=== PATIENT | female | born 1965 | race Caucasian/White ===

== ENCOUNTER → 2016-10-21 | Outpatient (REF) | payer MEDICARE, MEDICAID ==
[~2016-10-21] MED LIST: CALC600T21 PO; EPIP0.3I2 IM; MULTCAP PO; MULTCHW13 PO; VITA200016 PO
[2016-10-21 15:54] LABS: BASO # 0.1 K/mm3 (0.0-0.2); BASO % 0.7 % (0.0-1.0); EOS # 0.1 K/mm3 (0.0-0.50); EOS % 1.6 % (0.0-3.0); LARGE UNSTAINED CELL # 0.2 K/mm3 (0.0-0.4); LARGE UNSTAINED CELL % 1.7 % (0.0-4.0); LYMPH # 2.1 K/mm3 (1.5-4.5); LYMPH % 22.6 % (24.0-44.0); MEAN CORPUSCULAR HEMOGLOBIN 33.3 pg (27.0-33.0); MEAN CORPUSCULAR HGB CONC 34.5 g/dl (32.0-36.5); MEAN CORPUSCULAR VOLUME 96.7 fl (80.0-96.0); MONO # 0.5 K/mm3 (0.0-0.8); MONO % 5.4 % (0.0-5.0); NEUTROPHILS # 5.8 K/mm3 (1.8-7.7); PLATELET COUNT, AUTOMATED 336 k/mm3 (150-450); WHITE BLOOD COUNT 8.6 K/mm3 (4.0-10.0)
[2016-10-21 15:58] LABS: INR 0.9
[2016-10-21 16:10] LABS: ALBUMIN/GLOBULIN RATIO 1.21 (1.00-1.93); ALKALINE PHOSPHATASE 77 U/L (45-117); ALT/SGPT 23 U/L (12-78); ANION GAP 9 MEQ/L (8-16); AST/SGOT 14 U/L (15-37); BILIRUBIN,TOTAL 0.3 MG/DL (0.2-1.0); BLOOD UREA NITROGEN 10 MG/DL (7-18); CALCIUM LEVEL 9.5 MG/DL (8.5-10.1); CARBON DIOXIDE LEVEL 27 MEQ/L (21-32); CHLORIDE LEVEL 105 MEQ/L (98-107); CREATININE FOR GFR 0.57 MG/DL (0.55-1.02); GLOMERULAR FILTRATION RATE > 60.0 (>51); GLUCOSE, FASTING 77 MG/DL (70-105); SODIUM LEVEL 141 MEQ/L (136-145); TOTAL PROTEIN 7.3 GM/DL (6.4-8.2)
== END ==
LOC: M SFHCPLAZ 11:46
PROVIDERS: ATTEND Internal Medicine
DX: Z01.818 Encounter for other preprocedural examination (principal); N95.0 Postmenopausal bleeding
CPT/HCPCS: 36415; 80053; 85025; 85610; 93005; G0463

== ENCOUNTER → 2016-10-29 | Day surgery (SDC) | payer MEDICARE, MEDICAID ==
[~2016-10-29] VITALS: Ht 137.2 cm; Wt 57.6 kg
[~2016-10-29] MED LIST changes: +HYDROmorphone HCL 2 MG/ML 1ML VIAL (J1170) As Ordered ONE; +KETOROLAC 60 MG/2 ML VIAL (J1885) As Ordered ONE; +LACTATED RINGER'S 1000 ML IV ONE; +LIDOCAINE 1% SDV INJ 30 ML VIAL As Ordered ONE; +LR 1,000 ML IV SCH; +METOCLOPRAMIDE INJ 10MG/2ML VIAL (J2765) IV PRN; +MIDAZOLAM INJ 2 MG/2 ML VIAL (J2250) As Ordered ONE; +ONDANSETRON 4MG/2ML VIAL (J2405) As Ordered ONE; +ONDANSETRON 4MG/2ML VIAL (J2405) IV PRN; +PERCOCET 5MG/325MG TAB PO PRN; +PHENYLephrine HCL 500 MCG/5 ML (100MCG/ML) SYRINGE (J2370) As Ordered ONE; +PROPOFOL 200 MG/20 ML VIAL As Ordered ONE; +SILVER NITRATE APPLICATOR As Ordered ONE; +fentaNYL 100 MCG/2 ML INJECTION (J3010) As Ordered ONE; +fentaNYL 100 MCG/2 ML INJECTION (J3010) IV PRN
[2016-10-29 07:46] LABS: MEAN CORPUSCULAR HGB CONC 34.4 g/dl (32.0-36.5); MEAN CORPUSCULAR VOLUME 93.1 fl (80.0-96.0); RED CELL DISTRIBUTION WIDTH 11.7 % (11.5-14.5); WHITE BLOOD COUNT 7.2 K/mm3 (4.0-10.0)
--- NOTE | 2016-10-29 13:33 | RO ---
DATE OF PROCEDURE: 10/29/2016 PREOPERATIVE DIAGNOSES: 1. Abnormal uterine bleeding. 2. Severe osteoarthritis POSTPROCEDURE DIAGNOSES: 1. Abnormal uterine bleeding. 2. Severe osteoarthritis PROCEDURE PERFORMED: Hysteroscopy, dilatation and curettage. SURGEON: Bryant Aguirre DO CORPORATE COMMUNICATIONS INTERN: MAYTE Lala-1 ANESTHESIA: General via LMA. SPECIMENS SENT TO PATHOLOGY: Intrauterine tissue/endometrial curettings. ESTIMATED BLOOD LOSS: Less than 20 mL. FLUIDS REPLACED: 1300 mL lactated Ringer's. Hysteroscope fluid deficit was 100 mL. DRAINS: In-and-out catheter 30 mL of urine output. COMPLICATIONS: None. PREOPERATIVE ANTIBIOTIC: None indicated. INTRAOPERATIVE FINDINGS: Retroverted, retroflexed uterus that was sounded to 9 cm. There was a stenotic cervix. Hysteroscopic findings revealed predominantly atrophic fundal endometrium. Just beyond the internal os there were fronds of endometrial tissue, some of it polypoid in appearance; however, there was no large dominant polyp. The tissue was removed via curettings and polyp graspers. INDICATION: Abnormal uterine bleeding in a 51-year-old woman. PROCEDURE: The patient was counseled and consented on the risks, benefits, indications, alternatives of the procedure. Informed consent was obtained. She was taken to the operating room with an IV running and placed on the operating table. We placed her in the low lithotomy position prior to induction of anesthesia to ensure that the patient was comfortable and not in any pain. She has a history of severe osteoarthritis in bilateral hips. The patient, in the lithotomy position, was comfortable. Anesthesia was then administered and secured without any difficulty. She was prepared and draped in the normal sterile fashion. Time-out was performed per protocol. The bladder was drained with an in-and-out catheter. Sterile speculum was placed with good visualization of the cervix. The anterior lip of the cervix was grasped with a single-tooth tenaculum and downward traction was applied. The stenotic cervix was then sequentially dilated with Jaskaran dilators up to #16. This took a considerable amount of time given the stenosis of the cervix and the retroverted, retroflexed nature of the uterus. The hysteroscope was placed transcervical into the intrauterine cavity with findings noted above. Sharp curettage was performed throughout the endometrial cavity. After the sharp curettage was performed, additional hysteroscopic inspection revealed an area with small polypoid fragment along the left anterior uterine fundal wall. This polypoid fragment, which was less than a centimeter in greatest dimension was grasped and removed with hysteroscopic polyp graspers. All of the tissue was sent together for permanent section and review by the pathologist. The bleeding from the endometrium was noted to be minimal. Length Control Tester images were taken. The hysteroscope was removed. The single-tooth tenaculum was removed. Tenaculum sites were noted to be hemostatic. There was a small minor laceration of the posterior fourchette, which was repaired with #3-0 Vicryl [id number] stitch. Excellent hemostasis was noted. Sponge, lap, needle and sponge counts were correct. All instruments were noted to be removed from the vagina. The patient tolerated the entire procedure very well. She was transferred to the postanesthesia care unit in good and stable condition.
[2016-10-29 15:00] VITALS: BP 108/59
== END | disposition home or self-care (01) ==
LOC: M SDC 07:15
PROVIDERS: ATTEND Obstetrics & Gynecology
DX: N93.9 Abnormal uterine and vaginal bleeding, unspecified (principal); M15.0 Primary generalized (osteo)arthritis; N20.0 Calculus of kidney; M81.0 Age-related osteoporosis without current pathological fracture; M41.9 Scoliosis, unspecified; M53.2X2 Spinal instabilities, cervical region; E34.3 Short stature due to endocrine disorder; K57.30 Diverticulosis of large intestine without perforation or abscess without bleeding; G89.29 Other chronic pain; M25.551 Pain in right hip; R29.898 Other symptoms and signs involving the musculoskeletal system; Z91.018 Allergy to other foods; Z91.040 Latex allergy status; Z88.8 Allergy status to other drugs, medicaments and biological substances; Z98.1 Arthrodesis status
CPT/HCPCS: 36415; 58558; 85027; 86850; 86900; 86901; 88305; J1170; J1885; J2250; J2370; J2405; J3010

== ENCOUNTER → 2017-01-15 | Outpatient (CLI) | payer MEDICARE, MEDICAID ==
[~2017-01-15] MED LIST changes: -HYDROmorphone HCL 2 MG/ML 1ML VIAL (J1170) As Ordered ONE; -KETOROLAC 60 MG/2 ML VIAL (J1885) As Ordered ONE; -LACTATED RINGER'S 1000 ML IV ONE; -LIDOCAINE 1% SDV INJ 30 ML VIAL As Ordered ONE; -LR 1,000 ML IV SCH; -METOCLOPRAMIDE INJ 10MG/2ML VIAL (J2765) IV PRN; -MIDAZOLAM INJ 2 MG/2 ML VIAL (J2250) As Ordered ONE; -ONDANSETRON 4MG/2ML VIAL (J2405) As Ordered ONE; -ONDANSETRON 4MG/2ML VIAL (J2405) IV PRN; -PERCOCET 5MG/325MG TAB PO PRN; -PHENYLephrine HCL 500 MCG/5 ML (100MCG/ML) SYRINGE (J2370) As Ordered ONE; -PROPOFOL 200 MG/20 ML VIAL As Ordered ONE; -SILVER NITRATE APPLICATOR As Ordered ONE; -fentaNYL 100 MCG/2 ML INJECTION (J3010) As Ordered ONE; -fentaNYL 100 MCG/2 ML INJECTION (J3010) IV PRN
--- NOTE | 2017-01-15 11:16 | REP ---
DIGITAL DIAGNOSTIC UNILATERAL RIGHT BREAST MAMMOGRAPHY WITH CAD AND FOCUSED RIGHT BREAST SONOGRAPHY: HISTORY: Right breast lump 9-o'clock position present for the last 2 weeks with pain and tenderness. Comparison mammography is reviewed from July 03, 2016, July 02, 2015, and April 16, 2015. MAMMOGRAPHIC FINDINGS: A skin marker is affixed to the skin at the site of the palpable lump and routine views of the right breast are augmented by magnified focal spot compression CC, MLO, and true MLO views. These views demonstrate the breast parenchyma remains heterogeneously dense in a somewhat nodular pattern as on previous mammography. No progressive change, neodensity or mass lesion has developed. No spiculation or architectural distortion is seen. FOCUSED RIGHT BREAST SONOGRAPHY FINDINGS: The right breast is scanned from the 7o'clock position to the 10-o'clock position with the palpable lump at the 8-o'clock position. There is a cyst measuring 2.0 x 1.7 x 1.6 cm at the 8-o'clock to 9-o'clock position located 4.2 cm from the nipple, which may account for the mammographic opacity. There are two smaller cysts located at the 10-o'clock position. No suspicious sonographic finding is seen. IMPRESSION: BIRADS category 2 benign left breast imaging. A 2 cm cyst is seen at the 8-o'clock to 9-o'clock position in the right breast and felt to account for the mammographic opacity. Clinical follow-up is recommended. BI-RADS/ACR category 2 mammogram. Benign finding(s). Routine annual screening mammography (for women over age 40). This mammogram was interpreted with the aid of an FDA-approved computer-aided detection system. The patient states she/he had a clinical breast exam in December 2016. The patient letter being requested is M2. Signed by Ed Ambrosio MD 01/15/2017 01:16 P
== END ==
LOC: M RAD 09:01
PROVIDERS: ATTEND Nurse Practitioner Family
DX: N60.02 Solitary cyst of left breast (principal)
CPT/HCPCS: 76642; G0206

== ENCOUNTER → 2017-07-03 | Outpatient (CLI) | payer MEDICARE, MEDICAID ==
[~2017-07-03] MED LIST changes: -CALC600T21 PO; +CALC600T60 PO; -MULTCHW13 PO; +MULTCHW14 PO
--- NOTE | 2017-07-03 13:43 | REP ---
BILATERAL MAMMOGRAM: Family history of breast cancer in sister. Comparison made to multiple prior studies, most recent bilateral mammogram is 07/03/2016. There is heterogeneously dense breast parenchymal bilaterally. I suspect a new oval 2 cm nodule in the upper left breast. This is only seen on the MLO view. No other definite mass is seen bilaterally. No clustered microcalcifications are seen. IMPRESSION: ACR 0 incomplete. Suspect 2 cm oval nodular density superiorly on the left MLO view, not seen on the CC view. Recommend spot compression view, left breast in the MLO and ML projections as well as an axillary CC view of the left breast. Other views and ultrasound may also be necessary. Please also note that the Tyrer Cuzick score is 26.6%, which is above normal, and therefore, MRI of the breast is recommended. BI-RADS/ACR category 0 mammogram, incomplete. Additional imaging and/or prior images are needed before a final assessment can be assigned. This mammogram was interpreted with the aid of an FDA-approved computer-aided detection system. The patient states she/he had a clinical breast exam in July 2017. Patient letter M0. ?
--- NOTE | 2017-07-06 09:20 | DEXA ---
AP SPINE L1 - L4 0.844 -2.8 -2.2 LT FEMUR TOTAL 0.857 -1.2 -0.6 RT FEMUR TOTAL 0.789 -1.7 -1.2 TOTAL BODY TOTAL OTHER DUAL FEMUR FRAX* ASSESSMENT Risk factors: 10 year probability of fracture Major osteoporotic fracture % Hip fracture % COMMENTS: Normal bone densitometry of the hips. 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 The decreased density of the spine does represent a significant change. The increased density of the left hip does represent a significant change. The decreased density of the right hip does represent a significant change. The density of the spine has decreased 13.5% since the initial exam on 2007. The spine density has decreased 2.0% since the most recent exam on 06/29/2014. The density of the left hip has increased 40.5% since the initial exam on 2007. The density of the left hip has increased 6.2% since the most recent exam on . The density of the right hip has increased 0.5% since the initial exam on 2007. The density of the right hip has decreased 3.7% since the most recent exam on . FOLLOW-UP: Recommendation for the next bone density exam: 2 years. KENYON
== END ==
LOC: M WHC 10:17
PROVIDERS: ATTEND Nurse Practitioner Family
DX: R92.2 Inconclusive mammogram (principal); M81.0 Age-related osteoporosis without current pathological fracture; Z80.3 Family history of malignant neoplasm of breast; Z01.411 Encounter for gynecological examination (general) (routine) with abnormal findings; Z12.39 Encounter for other screening for malignant neoplasm of breast; Z12.12 Encounter for screening for malignant neoplasm of rectum; N95.1 Menopausal and female climacteric states
CPT/HCPCS: 77080; 82270; G0101; G0202

== ENCOUNTER → 2017-07-10 | Outpatient (CLI) | payer MEDICARE, MEDICAID ==
--- NOTE | 2017-07-10 16:20 | REP ---
Digital diagnostic unilateral left breast mammography with CAD and focused left breast sonography: History: Screening mammography from July 03, 2017 is BIRADS category zero incomplete because of 2 cm oval nodular density seen superiorly on the left MLO view. Diagnostic imaging was recommended. Comparison is also made with prior mammography from July 03, 2016. Mammographic findings: Magnified focal spot compression CC, MLO and true MLO views of the left breast confirm the presence of a partially obscured but otherwise well-circumscribed 1.9 cm oval shaped nodule projecting in the upper outer quadrant of the left breast. No spiculation or microcalcification is seen. Heterogeneously dense breast parenchyma is seen as on screening mammography. Sonographic findings: The left breast scanned from 12 o'clock to 3 o'clock. Multiple small cysts are seen. There is a large cyst at 1 o'clock measuring 16 x 10 x 14 mm located 2.5 cm from the nipple which is felt to correspond to the mammographic opacity. Impression: BIRADS category II benign left breast imaging. Cyst confirmed at 1 o'clock corresponding to the mammographic opacity. Repeat screening mammography recommended 1 year. BI-RADS/ACR category 2 mammogram. Benign finding(s). Routine annual screening mammography (for women over age 40). This mammogram was interpreted with the aid of an FDA-approved computer-aided detection system. The patient states she had a clinical breast exam in July 2017 The patient letter being requested is M1 dense. Signed by Ed Ambrosio MD 07/10/2017 04:53 P
== END ==
LOC: M RAD 13:52
PROVIDERS: ATTEND Nurse Practitioner Family
DX: R92.8 Other abnormal and inconclusive findings on diagnostic imaging of breast (principal); N60.12 Diffuse cystic mastopathy of left breast
CPT/HCPCS: 76642; G0206

== ENCOUNTER → 2018-03-23 | Outpatient (REF) | payer MEDICARE, MEDICAID ==
[2018-03-23 13:57] LABS: BASO # 0.1 10^3/uL (0.0-0.2); BASO % 0.9 % (0.0-1.0); EOS # 0.1 10^3/uL (0.0-0.50); EOS % 1.8 % (0.0-3.0); HEMATOCRIT 41.1 % (36.0-47.0); HEMOGLOBIN 14.3 g/dl (12.0-15.5); IMMATURE GRANULOCYTE % 0.2 % (0-3.0); LYMPH % 30.1 % (24.0-44.0); MEAN CORPUSCULAR HEMOGLOBIN 32.7 pg (27.0-33.0); MEAN CORPUSCULAR HGB CONC 34.8 g/dl (32.0-36.5); MEAN CORPUSCULAR VOLUME 94.1 fl (80.0-96.0); MONO # 0.4 10^3/uL (0.0-0.8); MONO % 6.5 % (0.0-5.0); NEUTROPHILS % 60.5 % (36.0-66.0); PLATELET COUNT, AUTOMATED 340 10^3/uL (150-450); RED BLOOD COUNT 4.37 10^6/uL (4.00-5.40); RED CELL DISTRIBUTION WIDTH 11.9 % (11.5-14.5); WHITE BLOOD COUNT 6.6 10^3/uL (4.0-10.0)
[2018-03-23 14:49] LABS: ERYTHROCYTE SEDIMENTATION RATE 15 mm/hr (0-30)
== END ==
LOC: M SFHCPLAZ 13:26
DX: J40 Bronchitis, not specified as acute or chronic (principal)
CPT/HCPCS: 85025

== ENCOUNTER → 2018-07-05 | Outpatient (REF) | payer MEDICARE, MEDICAID | LOC: M SFHCWAGY 11:11 | DX: Z12.4 Encounter for screening for malignant neoplasm of cervix (principal) | CPT/HCPCS: G0123 ==

== ENCOUNTER → 2018-07-05 | Outpatient (CLI) | payer MEDICARE, MEDICAID | LOC: M WHC 10:49 | DX: Z01.419 Encounter for gynecological examination (general) (routine) without abnormal findings (principal); Z12.31 Encounter for screening mammogram for malignant neoplasm of breast (principal); Z80.3 Family history of malignant neoplasm of breast; Z92.89 Personal history of other medical treatment; Z12.12 Encounter for screening for malignant neoplasm of rectum | CPT/HCPCS: 77067; G0123 ==

== ENCOUNTER → 2019-01-03 | Outpatient (REF) | payer MEDICARE, MEDICAID ==
[2019-01-03 12:06] LABS: BASO # 0.1 10^3/uL (0.0-0.2); BASO % 0.7 % (0.0-1.0); EOS # 0.1 10^3/uL (0.0-0.50); EOS % 1.5 % (0.0-3.0); HEMATOCRIT 39.8 % (36.0-47.0); HEMOGLOBIN 13.7 g/dl (12.0-15.5); LYMPH # 1.8 10^3/uL (1.5-4.5); LYMPH % 25.3 % (24.0-44.0); MEAN CORPUSCULAR HEMOGLOBIN 32.2 pg (27.0-33.0); MEAN CORPUSCULAR HGB CONC 34.4 g/dl (32.0-36.5); MEAN CORPUSCULAR VOLUME 93.6 fl (80.0-96.0); MONO # 0.4 10^3/uL (0.0-0.8); MONO % 5.8 % (0.0-5.0); NEUTROPHILS # 4.8 10^3/uL (1.8-7.7); NEUTROPHILS % 66.6 % (36.0-66.0); PLATELET COUNT, AUTOMATED 351 10^3/uL (150-450); RED BLOOD COUNT 4.25 10^6/uL (4.00-5.40); WHITE BLOOD COUNT 7.3 10^3/uL (4.0-10.0)
== END ==
LOC: M LABDRAW1 11:49
PROVIDERS: ATTEND Family Medicine
DX: K62.5 Hemorrhage of anus and rectum (principal)
CPT/HCPCS: 36415; 85025; G0463

== ENCOUNTER → 2019-01-17 | Outpatient (CLI) | payer MEDICARE, MEDICAID ==
--- NOTE | 2019-01-17 18:41 | REP ---
CHEST, TWO VIEWS: COMPARISON: 09/28/2018 There is no evidence of acute infiltrate. No pleural effusion is seen. The heart is normal in size. The mediastinal silhouette is unremarkable. The visualized osseous structures are intact. There are degenerative changes of the spine. IMPRESSION: No acute pulmonary disease. Electronically Signed by Low Yost MD 01/17/2019 07:59 P
[2019-01-17 18:54] LABS: BASO # 0.1 10^3/uL (0.0-0.2); EOS # 0.2 10^3/uL (0.0-0.50); EOS % 2.4 % (0.0-3.0); HEMATOCRIT 39.1 % (36.0-47.0); HEMOGLOBIN 13.4 g/dl (12.0-15.5); LYMPH # 1.8 10^3/uL (1.5-4.5); LYMPH % 28.7 % (24.0-44.0); MEAN CORPUSCULAR HEMOGLOBIN 32.7 pg (27.0-33.0); MEAN CORPUSCULAR HGB CONC 34.3 g/dl (32.0-36.5); MEAN CORPUSCULAR VOLUME 95.4 fl (80.0-96.0); MONO # 0.4 10^3/uL (0.0-0.8); NEUTROPHILS # 3.8 10^3/uL (1.8-7.7); NEUTROPHILS % 60.7 % (36.0-66.0); PLATELET COUNT, AUTOMATED 312 10^3/uL (150-450); WHITE BLOOD COUNT 6.2 10^3/uL (4.0-10.0)
[2019-01-17 20:35] LABS: BLOOD UREA NITROGEN 9 MG/DL (7-18); CALCIUM LEVEL 8.8 MG/DL (8.5-10.1); CARBON DIOXIDE LEVEL 25 MEQ/L (21-32); CHLORIDE LEVEL 109 MEQ/L (98-107); GLOMERULAR FILTRATION RATE > 60.0 (>51); GLUCOSE, FASTING 99 MG/DL (70-100); POTASSIUM SERUM 4.2 MEQ/L (3.5-5.1); SODIUM LEVEL 140 MEQ/L (136-145)
== END ==
LOC: M RAD 16:44
PROVIDERS: ATTEND Family Medicine
DX: J18.1 Lobar pneumonia, unspecified organism (principal)
CPT/HCPCS: 36415; 71046; 80048; 84145; 85025; 87486; 87581; 87633; 87798; 94640; G0463; J7613

== ENCOUNTER → 2019-01-17 | Outpatient (REF) | payer MEDICARE, MEDICAID | LOC: M SFHCPLAZ 16:56 | PROVIDERS: ATTEND Family Medicine | DX: J18.1 Lobar pneumonia, unspecified organism (principal) ==

== ENCOUNTER → 2019-08-17 | Outpatient (CLI) | payer MEDICARE, MEDICAID ==
--- NOTE | 2019-08-17 15:18 | REPMRS ---
Patient History The patient states she had a clinical breast exam in July 2019.Family history of colorectal cancer at age 90 in father, breast cancer at age 50 or over in paternal grandmother, breast cancer at age 57 in sister, ovarian cancer in maternal aunt. Benign core biopsy of the left breast, 1991. No Hormone Replacement Therapy Digital Woman Screen Mammo: August 17, 2019 - Exam #: [id number] Bilateral CC and MLO view(s) were taken. Technologist: Tamara Bond, Technologist Prior study comparison: July 05, 2018, bilateral digital woman screen mammo performed at [facility]. July 03, 2017, digital woman screen mammo performed at [facility]. July 03, 2016, digital woman screen mammo performed at [facility]. FINDINGS: The breast tissue is extremely dense which could obscure a lesion on mammography. The previously noted cyst in the left lateral mid breast has enlarged in the interval since the prior mammography and currently measures 4.0 cm in greatest diameter. This merits further evaluation. No other mammographic abnormality. There is an extremely dense symmetrical pattern of residual fibroglandular tissue. There has been no other change in the appearance of the mammogram from the previous studies. There is no other interval development of dominant mass, archetectural distortion, or grouped microcalcifications suggestive of malignancy. 3-D tomosynthesis shows no additional findings. Assessment: BI-RADS/ACR category 0 mammogram, Incomplete: Need additional imaging evaluation and/or prior mammograms for comparison. Recommendation Special view mammogram of the left breast (for women over age 40). This patient's Lifetime Breast Cancer RIsk is estimated at 25.1 %. Annual screening Breast MRI scanniing is recommended for patient's whose lifetime risk assessment is over 20%. This mammogram was interpreted with the aid of an FDA-approved computer-aided dectection system. Ultrasound of the left breast in 6 months. Breast MRI of both breasts in 6 months. Electronically Signed By: Brock Ambrosio MD 08/17/19 [id number]
--- NOTE | 2019-08-23 08:56 | DEXA ---
AP SPINE L1 - L4 0.837 -2.9 -2.1 LT FEMUR TOTAL 0.860 -1.2 -0.5 LT NECK 1.217 1.3 2.3 RT FEMUR TOTAL 0.834 -1.4 -0.7 RT NECK 1.170 1.0 2.0 TOTAL BODY TOTAL OTHER COMMENTS: There is low bone density of the hips. 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 The density of the spine has decreased 14.2% since the initial exam on 02/01/2008. The spine density has decreased 0.8% since the most recent exam on 07/03/2017. The density of the left hip has increased 41.0% since the initial exam on 02/01/2008. The density of the left hip has increased 0.4% since the most recent exam on 07/03/2017. The density of the right hip has increased 6.2% since the initial exam on 02/01/2008. The density of the right hip has increased 5.7% since the most recent exam on 07/03/2017. FOLLOW-UP: Recommendation for the next bone density exam: 2 years. KENYON
== END ==
LOC: M WHC 13:09
PROVIDERS: ATTEND Nurse Practitioner Family
DX: Z01.419 Encounter for gynecological examination (general) (routine) without abnormal findings (principal); Z12.31 Encounter for screening mammogram for malignant neoplasm of breast; M81.0 Age-related osteoporosis without current pathological fracture; Z80.0 Family history of malignant neoplasm of digestive organs; Z80.3 Family history of malignant neoplasm of breast; Z86.018 Personal history of other benign neoplasm; N63.25 Unspecified lump in the left breast, overlapping quadrants
CPT/HCPCS: 77063; 77067; 77080; G0101

== ENCOUNTER → 2019-08-19 | Outpatient (CLI) | payer MEDICARE, MEDICAID ==
--- NOTE | 2019-08-19 17:33 | REP ---
HISTORY: Cough. COMPARISON: 01/17/2019 FINDINGS: The superior mediastinal structures are midline. The cardiac silhouette is unremarkable in size, shape and position. The diaphragmatic surfaces of the lungs are regular and the costophrenic angles are clear. The pulmonary newman are clear. The imaged osseous structures are intact. IMPRESSION: There is no acute cardiopulmonary disease. No significant change from the prior exam. Electronically Signed by Varun Bacon DO 08/19/2019 06:21 P
== END ==
LOC: M LRY 16:03
PROVIDERS: ATTEND Physician Assistant
DX: R05 Cough (principal)
CPT/HCPCS: 71046; 94640; G0463

== ENCOUNTER → 2019-08-29 | Outpatient (CLI) | payer MEDICARE, MEDICAID ==
--- NOTE | 2019-08-29 17:12 | REP ---
Digital diagnostic unilateral left breast mammography with CAD and focused left breast sonography. History: Screening mammography from August 17, 2019 was BIRADS category zero because of a 4 cm density in the left breast. Left breast diagnostic imaging was recommended. Findings: Magnified focal spot compression CC, MLO, and true mediolateral views of the left breast were obtained. These confirm the presence of a well-circumscribed oval-shaped relatively low density 3.6 cm mass in the left breast upper outer quadrant at approximately 1 o'clock position. This has smooth margins. No other mammographic finding. Sonographic findings: The left breast is examined sonographically from 12 o'clock to 3 o'clock through the upper outer quadrant. Heterogeneous fibroglandular background echotexture is observed. There is a simple cyst at 1 o'clock corresponding the mammographic opacity. This measures 3.5 x 1.3 x 2.3 cm on ultrasound. No suspicious sonographic finding. Impression: BIRADS category II benign findings. 3.5 cm cyst confirmed by ultrasound in the left breast. BIRADS 2: BI-RADS/ACR category 2 mammogram. Benign Findings. Repeat screening bilateral mammography recommended 1 year. This mammogram was interpreted with the aid of an FDA-approved computer-aided detection system. The patient states she had a clinical breast exam in July 2019 The patient letter being requested is M1. Dense. Electronically Signed by Ed Ambrosio MD 08/29/2019 06:19 P
== END ==
LOC: M RAD 09:02
PROVIDERS: ATTEND Nurse Practitioner Family
DX: Z12.31 Encounter for screening mammogram for malignant neoplasm of breast (principal); N63.25 Unspecified lump in the left breast, overlapping quadrants

== ENCOUNTER → 2019-11-15 | Outpatient (REF) | payer MEDICARE, MEDICAID | LOC: M PLALAB 10:52 | PROVIDERS: ATTEND Nurse Practitioner Family | DX: E04.9 Nontoxic goiter, unspecified (principal) | CPT/HCPCS: 84443; G0463 ==

== ENCOUNTER → 2019-12-20 | Outpatient (CLI) | payer MEDICARE, MEDICAID ==
--- NOTE | 2019-12-20 16:07 | REPPI ---
TWO-VIEW CHEST: REASON: Bronchitis. COMPARISON: No priors. FINDINGS: The superior mediastinal structures are midline. The cardiac silhouette is unremarkable in size, shape, and position. The diaphragmatic surfaces of the lungs are regular, and the costophrenic angles are clear. The pulmonary newman are clear. The imaged osseous structures are intact. IMPRESSION: There is no acute cardiopulmonary disease. Electronically Signed by Varun Bacon DO 12/20/2019 04:57 P
== END ==
LOC: M PLAIMG 14:08
PROVIDERS: ATTEND Physician Assistant
DX: J20.9 Acute bronchitis, unspecified (principal)
CPT/HCPCS: 71046; G0463

== ENCOUNTER 2020-08-02 17:52 | Emergency (ER) | payer MEDICARE, MEDICAID ==
[~2020-08-02] VITALS: Ht 134.6 cm; Wt 59.4 kg
[2020-08-02 18:53] LABS: BASO # 0.1 10^3/uL (0.0-0.2); BASO % 0.7 % (0.0-1.0); EOS # 0.1 10^3/uL (0.0-0.5); EOS % 1.6 % (0.0-3.0); HEMATOCRIT 42.4 % (36.0-47.0); LYMPH # 1.8 10^3/uL (1.5-5.0); LYMPH % 21.3 % (24.0-44.0); MONO # 0.5 10^3/uL (0.0-0.8); MONO % 6.2 % (0.0-5.0); NEUTROPHILS # 5.8 10^3/uL (1.5-8.5); PLATELET COUNT, AUTOMATED 325 10^3/uL (150-450); RED BLOOD COUNT 4.51 10^6/uL (4.00-5.40); WHITE BLOOD COUNT 8.3 10^3/uL (4.0-10.0)
[2020-08-02] MEDS ORDERED: KETOROLAC 60MG 2ML VIAL IM ONE (19:15)
[2020-08-02] MEDS ORDERED: KETOROLAC 30 MG/ML 1ML VIAL IV ONE (19:15)
[2020-08-02] MEDS ORDERED: TAMSULOSIN 0.4 MG CAP PO ONE (19:15)
[2020-08-02] MEDS ORDERED: NS 1,000 ML IV ONE (19:15)
[2020-08-02 19:21] LABS: ALBUMIN 3.8 GM/DL (3.2-5.2); ALT/SGPT 19 U/L (12-78); BILIRUBIN,DIRECT 0.1 MG/DL (0.0-0.2); BILIRUBIN,TOTAL 0.4 MG/DL (0.2-1.0); BLOOD UREA NITROGEN 8 MG/DL (7-18); CALCIUM LEVEL 9.4 MG/DL (8.5-10.1); CARBON DIOXIDE LEVEL 27 MEQ/L (21-32); CHLORIDE LEVEL 106 MEQ/L (98-107); CREATININE FOR GFR 0.62 MG/DL (0.55-1.30); GLOMERULAR FILTRATION RATE > 60.0 (>51); GLUCOSE, FASTING 83 MG/DL (70-100); LIPASE 148 U/L (73-393); POTASSIUM SERUM 3.9 MEQ/L (3.5-5.1); SODIUM LEVEL 139 MEQ/L (136-145); TOTAL PROTEIN 7.1 GM/DL (6.4-8.2)
--- NOTE | 2020-08-02 20:07 | REPVR ---
PROCEDURE INFORMATION: Exam: CT Abdomen And Pelvis Without Contrast Exam date and time: 08/02/2020 7:17 PM Age: 55 years old Clinical indication: Abdominal pain; Additional info: R flank pain TECHNIQUE: Imaging protocol: Computed tomography of the abdomen and pelvis without contrast. Radiation optimization: All CT scans at this facility use at least one of these dose optimization techniques: automated exposure control; mA and/or kV adjustment per patient size (includes targeted exams where dose is matched to clinical indication); or iterative reconstruction. COMPARISON: CT ABD PELVIS W/O CONTRAST 07/24/2015 11:31 AM FINDINGS: Lungs: Clear appearing lung bases. Heart: The heart is top-normal in size and there is no pericardial effusion. Liver: There is a 1.5 cm cyst left lobe of the liver. Gallbladder and bile ducts: Normal appearing gallbladder. Pancreas: Normal pancreas. Spleen: Normal spleen. Adrenal glands: Normal adrenal glands. Kidneys and ureters: There is a small cyst upper pole of the left kidney. There is no evidence of hydronephrosis or obstruction right or left ureter. Stomach and bowel: Diverticula left colon with no evidence of diverticulitis. Appendix: Cecum is in the right pelvis and the appendix appears within the range of normal. Intraperitoneal space: There is no evidence of pneumoperitoneum. Vasculature: Unremarkable. No abdominal aortic aneurysm. Lymph nodes: Unremarkable. No enlarged lymph nodes. Urinary bladder: Normal urinary bladder. Reproductive: The uterus is enlarged and markedly retroverted. Follicular cysts of the ovaries. Bones/joints: There is severe narrowing of the right left hip joint with [id number], grade 4 changes of chondromalacia. There is severe sclerosis and cystic degenerative change throughout the right and left femoral head with subcortical chronic fracture lines, identified at the articular surface greater on the right. 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 Large cystic areas are noted through the bone of the acetabulum. There are severe compression deformities of the lower thoracic spine at multiple levels with extreme sclerosis and this is probably chronic post traumatic change and severe degenerative and arthritic change. Soft tissues: There is no evidence of soft tissue abnormality. IMPRESSION: 1. 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 2. No evidence of obstruction right or left kidney. 3. Retroverted uterus and follicular cysts of the ovaries. COMMENTS: Consistent with the [employer]'s Incidental Findings Committee white paper (J Am Alisa Radiol 2018): Any incidental renal lesion less than 1 cm or classified as too small to characterize, or any incidental cystic renal lesion characterized as simple-appearing, is likely benign. No follow-up imaging is recommended for these lesions per consensus recommendations based on imaging criteria. Electronically signed by: Pancho Ramos On 08/02/2020 20:08:02 PM
[2020-08-02] MEDS ORDERED: ROBA750T4 PO (20:47)
[2020-08-02] MEDS ORDERED: ASPE4PAD TOP (20:47)
[2020-08-02 20:55] VITALS: BP 142/83
[2020-08-02] MEDS ORDERED: **NOTE PATIENT COMMENT** MISC XX SCH (21:00)
[2020-08-02] MEDS ORDERED: methocarbamoL 750 MG TAB PO ONE (21:00)
[2020-08-02] MEDS ORDERED: LIDOCAINE 5% (LIDODERM) PATCH TD ONE (21:00)
[2020-08-03] MEDS ORDERED: **NOTE PATIENT COMMENT** MISC XX ONE (09:00)
--- NOTE | 2020-08-03 10:54 | ED PDOC ---
Post-Departure Follow-Up dr york and clarence pinzon faxed formal report of ct abd/p for fu Raul Romero MD Aug 03, 2020 10:54
== END 2020-08-02 21:17 | disposition home or self-care (01) ==
LOC: M ED 17:52
DX: M54.5 Low back pain (principal); M41.9 Scoliosis, unspecified; M51.9 Unspecified thoracic, thoracolumbar and lumbosacral intervertebral disc disorder; Z87.442 Personal history of urinary calculi; Z79.899 Other long term (current) drug therapy; Z88.8 Allergy status to other drugs, medicaments and biological substances; Z91.018 Allergy to other foods; Z91.040 Latex allergy status
CPT/HCPCS: 36415; 74176; 80048; 80076; 81001; 83690; 85025; 96372; 99283; J1885

== ENCOUNTER → 2020-08-17 | Outpatient (CLI) | payer MEDICARE, MEDICAID ==
[~2020-08-17] MED LIST changes: +ASPE4PAD TOP; +ROBA750T4 PO
--- NOTE | 2020-08-17 14:52 | REPMRS ---
Patient History The patient states she had a clinical breast exam in 07/2020 Family history of colorectal cancer at age 90 in father, breast cancer at age 50 or over in paternal grandmother, breast cancer at age 57 in sister, ovarian cancer in maternal aunt. Benign core biopsy of the left breast, 1991. No Hormone Replacement Therapy Digital Woman Screen Mammo: August 17, 2020 - Exam #: [id number] Bilateral CC and MLO view(s) were taken. Technologist: Maci Martínez, Technologist Prior study comparison: August 29, 2019, left breast digital mammo diagnostic unilateral, performed at [facility]. August 17, 2019, bilateral digital woman screen mammo performed at [facility]. July 05, 2018, bilateral digital woman screen mammo performed at [facility]. July 03, 2017, digital woman screen mammo performed at [facility]. FINDINGS: The breast tissue is heterogeneously dense. This may lower the sensitivity of mammography. The Volpara volumetric breast density category is: C. The previously noted left breast cyst has regressed. There is a moderate amount of heterogeneously dense fibroglandular tissue which is fairly symmetric. There is no interval development of dominant mass, architectural distortion, or grouped microcalcification typical of malignancy. There has been no change in the appearance of the mammogram from the prior studies. 3-D tomosynthesis shows no additional findings. Assessment: BI-RADS/ACR category 2 mammogram. Benign Findings. Recommendation Breast MRI of both breasts in 6 months. Routine screening mammogram of both breasts in 1 year (for women over age 40). This patient's [facility] Lifetime Breast Cancer RIsk is estimated at 24.5 %. Annual screening Breast MRI scanniing is recommended for patient's whose lifetime risk assessment is over 20%. This mammogram was interpreted with the aid of an FDA-approved computer-aided dectection system. Electronically Signed By: Brock Ambrosio MD 08/17/20 [id number]
== END ==
LOC: M WHC 13:16
PROVIDERS: ATTEND Nurse Practitioner Family
DX: Z01.419 Encounter for gynecological examination (general) (routine) without abnormal findings (principal); Z12.31 Encounter for screening mammogram for malignant neoplasm of breast; Z80.0 Family history of malignant neoplasm of digestive organs; Z80.3 Family history of malignant neoplasm of breast; Z86.018 Personal history of other benign neoplasm
CPT/HCPCS: 77063; 77067; G0101

== ENCOUNTER → 2021-03-06 | Outpatient (CLI) | payer MEDICARE, MEDICAID | LOC: M RAD 09:48 | PROVIDERS: ATTEND Nurse Practitioner Women's Health | DX: Z91.89 Other specified personal risk factors, not elsewhere classified (principal); Z80.3 Family history of malignant neoplasm of breast; Z53.8 Procedure and treatment not carried out for other reasons ==

== ENCOUNTER → 2021-05-16 | Outpatient (CLI) | payer MEDICARE, MEDICAID ==
--- NOTE | 2021-05-16 11:21 | REP ---
INDICATION: PAIN IN RIGHT KNEE COMPARISON: None. TECHNIQUE: Five views right knee. FINDINGS: There is no evidence of acute fracture, dislocation, or intrinsic bone disease.There is mild patellofemoral compartment narrowing with subchondral sclerosis. There is a moderate spur of the lateral patellar facet. There is no radiographic evidence of a significant joint effusion. IMPRESSION: No fracture or dislocation. Degenerative changes patellofemoral joint. <Electronically signed by Low Yost > 05/16/21 [id number]
== END ==
LOC: M RAD 09:38
PROVIDERS: ATTEND Physician Assistant
DX: M25.561 Pain in right knee (principal)

== ENCOUNTER → 2021-09-02 | Outpatient (CLI) | payer MEDICARE, MEDICAID ==
[~2021-09-02] MED LIST changes: +ALBU8.5H PO; +CETI-24 PO; +FAMO20TA5 PO
== END ==
LOC: M LABSMTC 12:10
PROVIDERS: ATTEND Anesthesiology
DX: Z01.818 Encounter for other preprocedural examination (principal); Z11.52 Encounter for screening for COVID-19

== ENCOUNTER → 2021-09-04 | Outpatient (CLI) | payer MEDICARE, MEDICAID | LOC: M WHC 11:16 | PROVIDERS: ATTEND Nurse Practitioner Women's Health | DX: Z12.31 Encounter for screening mammogram for malignant neoplasm of breast (principal); Z12.4 Encounter for screening for malignant neoplasm of cervix; M81.6 Localized osteoporosis [Lequesne]; R92.8 Other abnormal and inconclusive findings on diagnostic imaging of breast; N95.8 Other specified menopausal and perimenopausal disorders | CPT/HCPCS: 77063; 77067; 77080; 87624; G0101; G0123 ==

== ENCOUNTER → 2021-09-04 | Outpatient (REF) | payer MEDICARE, MEDICAID | LOC: M SFHCWAGY 18:30 | PROVIDERS: ATTEND Nurse Practitioner Women's Health | DX: Z12.4 Encounter for screening for malignant neoplasm of cervix (principal); N95.8 Other specified menopausal and perimenopausal disorders ==

== ENCOUNTER 2021-09-05 09:52 | Day surgery (SDC) | payer MEDICARE, MEDICAID ==
[~2021-09-05] VITALS: Ht 132.1 cm; Wt 59.3 kg
[~2021-09-05 09:52] MED LIST changes: +NS 1,000 ML IV ONE
[2021-09-05] MEDS ORDERED: fentaNYL 100 MCG/2 ML INJECTION (J3010) As Ordered ONE (12:24)
[2021-09-05] MEDS ORDERED: propofoL 200 MG/20 ML VIAL As Ordered ONE (12:44)
[2021-09-05] MEDS ORDERED: LIDOCAINE 2% 100MG/5ML SDV (FOR ANES.) As Ordered ONE (12:44)
[2021-09-05 13:28] VITALS: BP 130/67
== END 2021-09-05 14:00 | disposition home or self-care (01) ==
LOC: M OPP 09:52
PROVIDERS: ATTEND Internal Medicine Gastroenterology
DX: Z12.11 Encounter for screening for malignant neoplasm of colon (principal); Z86.010 Personal history of colon polyps; K64.0 First degree hemorrhoids; K20.80 Other esophagitis without bleeding; R10.13 Epigastric pain; Z79.899 Other long term (current) drug therapy; Z91.018 Allergy to other foods; Z91.040 Latex allergy status; Z88.5 Allergy status to narcotic agent; Z88.8 Allergy status to other drugs, medicaments and biological substances
CPT/HCPCS: 43239; 88305; G0105; J3010

== ENCOUNTER → 2021-10-02 | Outpatient (CLI) | payer MEDICARE, MEDICAID ==
[~2021-10-02] MED LIST changes: +CALC1TAB42 PO; -NS 1,000 ML IV ONE
== END ==
LOC: M WHC 06:58
PROVIDERS: ATTEND Surgery
DX: N63.21 Unspecified lump in the left breast, upper outer quadrant (principal); R92.8 Other abnormal and inconclusive findings on diagnostic imaging of breast

== ENCOUNTER → 2021-10-02 | Outpatient (CLI) | payer MEDICARE, MEDICAID ==
[~2021-10-02] MED LIST changes: +ACET1TAB16; +ACET650T61 PO; +CETI-24; +OMEP40CA5
[2021-10-02 09:28] VITALS: BP 138/86
== END ==
LOC: M WHCPRO 07:02
PROVIDERS: ATTEND Surgery
DX: D05.02 Lobular carcinoma in situ of left breast (principal)
CPT/HCPCS: 11104; 19083; 19084; 76642; 77065; 88305; 88342; G0279

== ENCOUNTER → 2021-10-07 | Outpatient (CLI) | payer MEDICARE, MEDICAID ==
[~2021-10-07] MED LIST changes: -ACET1TAB16; -ACET650T61 PO; -CETI-24; -OMEP40CA5
== END ==
LOC: M PLALAB 15:18
PROVIDERS: ATTEND Surgery
DX: Z85.3 Personal history of malignant neoplasm of breast (principal)

== ENCOUNTER → 2021-10-18 | Outpatient (CLI) | payer MEDICARE, MEDICAID ==
[~2021-10-18] MED LIST changes: +ACET-897 PO; +ACET1TAB16; +ACET650T61 PO; +CETI-24; +OMEP40CA5; +ROXI1TAB2 PO; +TAMO20TA8 PO
[2021-10-18 17:09] LABS: BASO # 0.1 10^3/uL (0.0-0.2); BASO % 0.9 % (0.0-1.0); EOS # 0.1 10^3/uL (0.0-0.5); EOS % 1.9 % (0.0-3.0); HEMATOCRIT 42.2 % (36.0-47.0); HEMOGLOBIN 14.3 g/dl (12.0-15.5); LYMPH % 29.1 % (24.0-44.0); MEAN CORPUSCULAR HEMOGLOBIN 31.9 pg (27.0-33.0); MEAN CORPUSCULAR HGB CONC 33.9 g/dl (32.0-36.5); MEAN CORPUSCULAR VOLUME 94.2 fl (80.0-96.0); MONO # 0.4 10^3/uL (0.0-0.8); MONO % 6.4 % (2.0-8.0); NEUTROPHILS # 4.2 10^3/uL (1.5-8.5); NEUTROPHILS % 61.6 % (36.0-66.0); PLATELET COUNT, AUTOMATED 375 10^3/uL (150-450); RED BLOOD COUNT 4.48 10^6/uL (4.00-5.40); WHITE BLOOD COUNT 6.7 10^3/uL (4.0-10.0)
[2021-10-18 17:21] LABS: INR 0.87; PARTIAL THROMBOPLASTIN TIME 27.5 SECONDS (25.9-37.0); PROTHROMBIN TIME 12.2 SECONDS (12.7-14.5)
[2021-10-18 17:38] LABS: ALBUMIN 3.8 GM/DL (3.2-5.2); ALT/SGPT 25 U/L (12-78); BILIRUBIN,TOTAL 0.2 MG/DL (0.2-1.0); BLOOD UREA NITROGEN 13 MG/DL (7-18); CALCIUM LEVEL 8.9 MG/DL (8.5-10.1); CARBON DIOXIDE LEVEL 26 MEQ/L (21-32); CHLORIDE LEVEL 108 MEQ/L (98-107); CREATININE FOR GFR 0.61 MG/DL (0.55-1.30); FERRITIN 33 NG/ML (8-252); GLOMERULAR FILTRATION RATE > 60.0 (>51); GLUCOSE, FASTING 108 MG/DL (70-100); NT-PRO BNP 55 PG/ML (<125); POTASSIUM SERUM 4.1 MEQ/L (3.5-5.1); SODIUM LEVEL 141 MEQ/L (136-145); TOTAL PROTEIN 7.4 GM/DL (6.4-8.2)
[2021-10-18 17:45] LABS: PTH INTACT 118.3 PG/ML (18.5-88.0)
== END ==
LOC: M LAB 16:35
PROVIDERS: ATTEND Family Medicine
DX: Z01.818 Encounter for other preprocedural examination (principal); M81.0 Age-related osteoporosis without current pathological fracture

== ENCOUNTER → 2021-10-24 | Outpatient (CLI) | payer MEDICARE, MEDICAID ==
[~2021-10-24] MED LIST changes: -ACET-897 PO; -TAMO20TA8 PO
== END ==
LOC: M LABSMTC 10:37
PROVIDERS: ATTEND Anesthesiology
DX: Z01.818 Encounter for other preprocedural examination (principal); Z11.52 Encounter for screening for COVID-19

== ENCOUNTER 2021-10-29 06:39 | Day surgery (SDC) | payer MEDICARE, MEDICAID ==
[~2021-10-29] VITALS: Ht 132.1 cm; Wt 59.0 kg
[~2021-10-29 06:39] MED LIST changes: +HEPARIN SOD (PORCINE) 5000UNITS/ML 1ML VIAL/SYRINGE SQ ONE; +LR 1,000 ML IV ONE; +NS 1,000 ML IV ONE; -ROXI1TAB2 PO; +ceFAZolin SOD 1 GM in D5W MINI-BAG PLUS 50 ML IV ONE
[2021-10-29] MEDS ORDERED: LIDOCAINE 1% SDV 30ML VIAL As Ordered ONE (08:58)
[2021-10-29] MEDS ORDERED: BUPIVACAINE HCL 0.25% 30ML VIAL As Ordered ONE (08:58)
[2021-10-29] MEDS ORDERED: METHYLENE BLUE 0.5% (5MG/ML) 10 ML AMP (PROVAYBLUE) As Ordered ONE (08:58)
[2021-10-29] MEDS ORDERED: ONDANSETRON 4MG/2ML VIAL As Ordered ONE (09:51)
[2021-10-29] MEDS ORDERED: HYDROmorphone HCL 2MG/ML 1ML VIAL As Ordered ONE (09:51)
[2021-10-29] MEDS ORDERED: dexameTHASONE 4 MG/ML 1ML VIAL (J1100 PER 1MG) As Ordered ONE (09:51)
[2021-10-29] MEDS ORDERED: METOCLOPRAMIDE INJ 10MG/2ML VIAL (J2765 PER 1) As Ordered ONE (09:51)
[2021-10-29] MEDS ORDERED: ROCURONIUM BROMIDE 50 MG/5 ML VIAL As Ordered ONE (09:51)
[2021-10-29] MEDS ORDERED: LIDOCAINE 2% 100MG/5ML SDV (FOR ANES.) As Ordered ONE (09:51)
[2021-10-29] MEDS ORDERED: propofoL 200 MG/20 ML VIAL As Ordered ONE (09:51)
[2021-10-29] MEDS ORDERED: SUGAMMADEX SODIUM 500 MG/5 ML VIAL (BRIDION) As Ordered ONE (09:51)
[2021-10-29] MEDS ORDERED: MIDAZOLAM INJ 2MG/2ML VIAL (J2250 PER 1MG) As Ordered ONE (09:51)
[2021-10-29] MEDS ORDERED: fentaNYL 250 MCG/5 ML INJECTION As Ordered ONE (09:51)
[2021-10-29] MEDS ORDERED: LIDOCAINE 2% JELLY 5ML TUBE As Ordered ONE ×2 (10:09→10:19)
[2021-10-29] MEDS ORDERED: ACETAMINOPHEN 1000MG 100ML IV BTL (OFIRMEV) (J0131 PER 10MG) As Ordered ONE (10:12)
[2021-10-29] MEDS ORDERED: ePHEDrine SULFATE 25 MG/5 ML(5MG/ML) SYRINGE As Ordered ONE (10:27)
[2021-10-29] MEDS ORDERED: ALBUTEROL 6.7GM INHALER **FOR ANES. CART/OMNICELL ONLY As Ordered ONE (12:29)
[2021-10-29] MEDS ORDERED: ROXI1TAB2 PO (13:02)
[2021-10-29] MEDS ORDERED: oxyCODONE 5MG TAB PO PRN (13:10)
[2021-10-29] MEDS ORDERED: LR 1,000 ML IV SCH (13:10)
[2021-10-29] MEDS ORDERED: METOCLOPRAMIDE INJ 10MG/2ML VIAL (J2765 PER 1) IV PRN (13:10)
[2021-10-29] MEDS ORDERED: HYDROMORPHONE HCL 0.5 MG/ 0.5 ML SYRINGE (J1170 PER 1) IV PRN (13:10)
[2021-10-29] MEDS ORDERED: ONDANSETRON 4MG/2ML VIAL IV PRN (13:10)
[2021-10-29] MEDS ORDERED: diphenhydrAMINE 50MG/ML VIAL (J1200) As Ordered ONE (13:26)
[2021-10-29] MEDS ORDERED: diphenhydrAMINE 50MG/ML VIAL (J1200) IV PRN (13:30)
[2021-10-29 14:34] VITALS: BP 123/64
== END 2021-10-29 14:38 | disposition home or self-care (01) ==
LOC: M SDC 06:39
PROVIDERS: ATTEND Surgery
DX: D05.02 Lobular carcinoma in situ of left breast (principal); Z17.0 Estrogen receptor positive status [ER+]; R00.2 Palpitations; M19.90 Unspecified osteoarthritis, unspecified site; M81.0 Age-related osteoporosis without current pathological fracture; J44.9 Chronic obstructive pulmonary disease, unspecified; K21.01 Gastro-esophageal reflux disease with esophagitis, with bleeding; J30.2 Other seasonal allergic rhinitis; Z98.1 Arthrodesis status; Z91.040 Latex allergy status; Z91.018 Allergy to other foods; Z88.8 Allergy status to other drugs, medicaments and biological substances; Z88.5 Allergy status to narcotic agent; Z79.899 Other long term (current) drug therapy
CPT/HCPCS: 19125; 19285; 36415; 38525; 78195; 81025; 86850; 86900; 86901; 88307; 88342; J0131; J0690; J1100; J1170; J1200; J1644; J2250; J2405; J2765; J3010

== ENCOUNTER → 2021-11-19 | Outpatient (CLI) | payer MEDICARE, MEDICAID ==
[~2021-11-19] MED LIST changes: +ACET-897 PO; -HEPARIN SOD (PORCINE) 5000UNITS/ML 1ML VIAL/SYRINGE SQ ONE; -LR 1,000 ML IV ONE; -NS 1,000 ML IV ONE; +ROXI1TAB2 PO; +TAMO20TA8 PO; -ceFAZolin SOD 1 GM in D5W MINI-BAG PLUS 50 ML IV ONE
== END ==
LOC: M ONCR 14:22
PROVIDERS: ATTEND General Practice
DX: C50.312 Malignant neoplasm of lower-inner quadrant of left female breast (principal); Z79.899 Other long term (current) drug therapy; Z80.0 Family history of malignant neoplasm of digestive organs; Z80.3 Family history of malignant neoplasm of breast; Z80.8 Family history of malignant neoplasm of other organs or systems; Z88.8 Allergy status to other drugs, medicaments and biological substances; Z91.010 Allergy to peanuts; Z91.018 Allergy to other foods; Z91.040 Latex allergy status; Z91.09 Other allergy status, other than to drugs and biological substances

== ENCOUNTER 2021-11-25 07:45 | Outpatient (RCR) | payer MEDICARE, MEDICAID | END 2021-11-28 | LOC: M ONCR 07:45 | PROVIDERS: ATTEND General Practice | DX: C50.312 Malignant neoplasm of lower-inner quadrant of left female breast (principal) ==

== ENCOUNTER 2021-12-27 14:42 | Outpatient (RCR) | payer MEDICARE, MEDICAID ==
[~2021-12-27 14:42] MED LIST changes: -ACET1TAB16; +ACET300T48; +TRIA1CR80 TOP
== END 2021-12-28 ==
PROVIDERS: ATTEND General Practice
DX: C50.312 Malignant neoplasm of lower-inner quadrant of left female breast (principal)

== ENCOUNTER 2022-01-03 14:28 | Outpatient (RCR) | payer MEDICARE, MEDICAID | END 2022-01-28 | LOC: M ONCR 14:28 | PROVIDERS: ATTEND General Practice | DX: C50.312 Malignant neoplasm of lower-inner quadrant of left female breast (principal) ==

== ENCOUNTER → 2022-02-07 | Outpatient (CLI) | payer MEDICARE, MEDICAID | LOC: M ONCR 16:04 | PROVIDERS: ATTEND General Practice | DX: N64.4 Mastodynia (principal) ==

== ENCOUNTER → 2022-02-20 | Outpatient (CLI) | payer MEDICARE, MEDICAID ==
[~2022-02-20] MED LIST changes: +VENL75TA2 PO
== END ==
LOC: M ONCR 13:59
PROVIDERS: ATTEND General Practice
DX: M25.50 Pain in unspecified joint (principal); R23.2 Flushing; Z79.810 Long term (current) use of selective estrogen receptor modulators (SERMs)

== ENCOUNTER → 2022-04-11 | Outpatient (CLI) | payer MEDICARE, MEDICAID | LOC: M ONCR 13:54 | PROVIDERS: ATTEND General Practice | DX: L81.9 Disorder of pigmentation, unspecified (principal); R21 Rash and other nonspecific skin eruption; Z92.3 Personal history of irradiation ==

== ENCOUNTER 2022-05-28 14:09 | Outpatient (RCR) | payer MEDICARE, MEDICAID | END 2022-05-30 | LOC: M PT 14:09 | PROVIDERS: ATTEND Nurse Practitioner Women's Health | DX: C50.512 Malignant neoplasm of lower-outer quadrant of left female breast (principal); N64.89 Other specified disorders of breast ==

== ENCOUNTER → 2022-06-13 | Outpatient (CLI) | payer MEDICARE, MEDICAID ==
[2022-06-13 18:03] LABS: CHOLESTEROL RISK RATIO 2.614 (<5)
== END ==
LOC: M PLALAB 15:52
PROVIDERS: ATTEND Physician Assistant
DX: Z13.220 Encounter for screening for lipoid disorders (principal)

== ENCOUNTER → 2022-07-09 | Outpatient (CLI) | payer MEDICARE, MEDICAID | LOC: M ONCR 15:30 | PROVIDERS: ATTEND General Practice | DX: C50.312 Malignant neoplasm of lower-inner quadrant of left female breast (principal); M25.551 Pain in right hip; M54.50 Low back pain, unspecified; Z92.3 Personal history of irradiation; Z79.890 Hormone replacement therapy; Z88.5 Allergy status to narcotic agent; Z88.8 Allergy status to other drugs, medicaments and biological substances; Z91.010 Allergy to peanuts; Z91.018 Allergy to other foods; Z91.040 Latex allergy status; Z79.51 Long term (current) use of inhaled steroids; Z79.899 Other long term (current) drug therapy ==

== ENCOUNTER 2022-07-11 15:45 | Outpatient (RCR) | payer MEDICARE, MEDICAID | END 2022-07-30 | LOC: M PT 15:45 | PROVIDERS: ATTEND Nurse Practitioner Women's Health | DX: N64.89 Other specified disorders of breast (principal) ==

== ENCOUNTER → 2022-07-11 | Outpatient (CLI) | payer MEDICARE, MEDICAID | LOC: M RAD 14:28 | PROVIDERS: ATTEND General Practice | DX: M25.851 Other specified joint disorders, right hip (principal); C50.312 Malignant neoplasm of lower-inner quadrant of left female breast ==

== ENCOUNTER → 2022-07-23 | Outpatient (CLI) | payer MEDICARE, MEDICAID | LOC: M SOG 08:04 | PROVIDERS: ATTEND Orthopaedic Surgery Adult Reconstructive Orthopaedic Surgery | DX: M16.0 Bilateral primary osteoarthritis of hip (principal) ==

== ENCOUNTER → 2022-08-04 | Outpatient (CLI) | payer MEDICARE, MEDICAID | LOC: M ONCR 12:38 | PROVIDERS: ATTEND General Practice | DX: C50.912 Malignant neoplasm of unspecified site of left female breast (principal); N60.32 Fibrosclerosis of left breast; Z92.3 Personal history of irradiation ==

== ENCOUNTER 2022-08-22 07:52 | Outpatient (RCR) | payer MEDICARE, MEDICAID | END 2022-08-30 | LOC: M PT 07:52 | PROVIDERS: ATTEND Nurse Practitioner Women's Health | DX: N64.89 Other specified disorders of breast (principal) ==

== ENCOUNTER → 2022-09-08 | Outpatient (CLI) | payer MEDICARE, MEDICAID | LOC: M WHC 13:15 | PROVIDERS: ATTEND Nurse Practitioner Women's Health | DX: D05.02 Lobular carcinoma in situ of left breast (principal); Z91.89 Other specified personal risk factors, not elsewhere classified | CPT/HCPCS: 77066; G0279 ==

== ENCOUNTER → 2022-10-20 | Outpatient (CLI) | payer MEDICARE, MEDICAID ==
[~2022-10-20] MED LIST changes: +D31000CA4 PO
== END ==
LOC: M RAD 16:20
PROVIDERS: ATTEND Internal Medicine Medical Oncology
DX: M54.2 Cervicalgia (principal)

== ENCOUNTER → 2022-11-04 | Outpatient (CLI) | payer MEDICARE, MEDICAID ==
[~2022-11-04] MED LIST changes: +LIDO1PAD TOP; +TRAM50TA2 PO
== END ==
LOC: M ONCR 13:42
PROVIDERS: ATTEND General Practice
DX: C50.312 Malignant neoplasm of lower-inner quadrant of left female breast (principal); L30.8 Other specified dermatitis; M16.0 Bilateral primary osteoarthritis of hip; M87.850 Other osteonecrosis, pelvis; Z79.810 Long term (current) use of selective estrogen receptor modulators (SERMs); Z79.899 Other long term (current) drug therapy; Z88.5 Allergy status to narcotic agent; Z91.02 Food additives allergy status; Z91.040 Latex allergy status; Z91.018 Allergy to other foods; Z88.8 Allergy status to other drugs, medicaments and biological substances; Z92.3 Personal history of irradiation

== ENCOUNTER → 2022-11-05 | Outpatient (REF) | payer MEDICARE, MEDICAID | LOC: M SFHCWAGY 10:11 | PROVIDERS: ATTEND Nurse Practitioner Family | DX: Z12.4 Encounter for screening for malignant neoplasm of cervix (principal); R87.610 Atypical squamous cells of undetermined significance on cytologic smear of cervix (ASC-US) | CPT/HCPCS: 87624; G0123 ==

== ENCOUNTER → 2022-11-18 | Outpatient (REF) | payer MEDICARE, MEDICAID ==
[2022-11-18 18:35] LABS: BASO # 0.1 10^3/uL (0.0-0.2); BASO % 1.3 % (0.0-1.0); EOS # 0.1 10^3/uL (0.0-0.5); EOS % 1.6 % (0.0-3.0); HEMOGLOBIN 13.9 g/dl (12.0-15.5); LYMPH # 1.8 10^3/uL (1.5-5.0); LYMPH % 31.9 % (24.0-44.0); MEAN CORPUSCULAR HEMOGLOBIN 32.8 pg (27.0-33.0); MEAN CORPUSCULAR HGB CONC 33.9 g/dl (32.0-36.5); MEAN CORPUSCULAR VOLUME 96.7 fl (80.0-96.0); MONO # 0.6 10^3/uL (0.0-0.8); MONO % 10.1 % (2.0-8.0); NEUTROPHILS % 54.9 % (36.0-66.0); PLATELET COUNT, AUTOMATED 314 10^3/uL (150-450); RED BLOOD COUNT 4.24 10^6/uL (4.00-5.40); WHITE BLOOD COUNT 5.5 10^3/uL (4.0-10.0)
[2022-11-18 18:55] LABS: HEMOGLOBIN A1c 5.1 % (4.0-6.0)
[2022-11-18 19:13] LABS: ALBUMIN 3.8 G/DL (3.2-5.2); ALKALINE PHOSPHATASE 61 U/L (46-116); ALT/SGPT 26 U/L (7.0-40); AST/SGOT 24 U/L (<34); BILIRUBIN,TOTAL 0.2 MG/DL (0.3-1.2); BLOOD UREA NITROGEN 10 MG/DL (9-23); CALCIUM LEVEL 9.6 MG/DL (8.5-10.1); CARBON DIOXIDE LEVEL 30 MMOL/L (20-31); CHLORIDE LEVEL 106 MMOL/L (98-107); CHOLESTEROL LEVEL 193 MG/DL (<200); CHOLESTEROL RISK RATIO 2.56 (<5); CREATININE FOR GFR 0.59 MG/DL (0.55-1.30); GLOMERULAR FILTRATION RATE > 60.0 (>51); GLUCOSE, FASTING 71 MG/DL (60-100); HDL CHOLESTEROL 75.2 MG/DL (>40); NON-HDL-C 117.8 MG/DL; POTASSIUM SERUM 4.2 MMOL/L (3.5-5.1); SODIUM LEVEL 141 MMOL/L (136-145); THYROID STIMULATING HORMONE 1.411 uIU/ML (0.55-4.78); TOTAL PROTEIN 6.9 G/DL (5.7-8.2); TRIGLYCERIDES LEVEL 84 MG/DL (<150)
[2022-11-18 19:49] LABS: HEPATITIS C VIRUS ABY INDEX 0.1 INDEX (<0.8)
== END ==
LOC: M PLALAB 16:40
PROVIDERS: ATTEND Physician Assistant
DX: R42 Dizziness and giddiness (principal); Z79.899 Other long term (current) drug therapy

== ENCOUNTER → 2022-11-20 | Outpatient (CLI) | payer MEDICARE, MEDICAID | LOC: M WHC 14:51 | PROVIDERS: ATTEND Nurse Practitioner Women's Health | DX: C50.512 Malignant neoplasm of lower-outer quadrant of left female breast (principal); D05.02 Lobular carcinoma in situ of left breast; Z91.89 Other specified personal risk factors, not elsewhere classified ==

== ENCOUNTER → 2022-12-19 | Outpatient (CLI) | payer MEDICARE, MEDICAID ==
[~2022-12-19] MED LIST changes: +CALTTAB6 PO; +VITMTA PO
== END ==
LOC: M ONCR 14:06
PROVIDERS: ATTEND General Practice
DX: M25.551 Pain in right hip (principal); M25.552 Pain in left hip; Z92.3 Personal history of irradiation

== ENCOUNTER → 2023-01-14 | Outpatient (CLI) | payer MEDICARE, MEDICAID | LOC: M SOG 08:25 | PROVIDERS: ATTEND Orthopaedic Surgery | DX: M25.551 Pain in right hip (principal); Z53.8 Procedure and treatment not carried out for other reasons ==

== ENCOUNTER → 2023-02-25 | Outpatient (CLI) | payer MEDICARE, MEDICAID | LOC: M SOG 08:14 | PROVIDERS: ATTEND Orthopaedic Surgery | DX: M25.551 Pain in right hip (principal); M16.2 Bilateral osteoarthritis resulting from hip dysplasia ==

== ENCOUNTER → 2023-03-17 | Outpatient (CLI) | payer MEDICARE, MEDICAID | LOC: M RAD 16:36 | PROVIDERS: ATTEND Orthopaedic Surgery | DX: M16.2 Bilateral osteoarthritis resulting from hip dysplasia (principal) ==

== ENCOUNTER → 2023-06-16 | Outpatient (CLI) | payer MEDICARE, MEDICAID ==
[2023-06-16 18:37] LABS: FOLLICLE STIMULATING HORMONE 39.3 mIU/ML; THYROID STIMULATING HORMONE 2.015 uIU/ML (0.55-4.78)
[2023-06-16 18:38] LABS: ESTRADIOL < 19.0 PG/ML; LUTEINIZING HORMONE 16.2 mIU/ML
== END ==
LOC: M PLALAB 15:26
PROVIDERS: ATTEND Nurse Practitioner Women's Health
DX: N93.9 Abnormal uterine and vaginal bleeding, unspecified (principal); Z79.899 Other long term (current) drug therapy

== ENCOUNTER 2023-06-18 14:33 | Outpatient (RCR) | payer MEDICARE, MEDICAID | END 2023-06-30 | LOC: M PT 14:33 | PROVIDERS: ATTEND Nurse Practitioner Women's Health | DX: I89.0 Lymphedema, not elsewhere classified (principal) ==

== ENCOUNTER → 2023-06-26 | Outpatient (CLI) | payer MEDICARE, MEDICAID | LOC: M WHC 15:05 | PROVIDERS: ATTEND Nurse Practitioner Women's Health | DX: D05.02 Lobular carcinoma in situ of left breast (principal); Z79.810 Long term (current) use of selective estrogen receptor modulators (SERMs) ==

== ENCOUNTER → 2023-07-02 | Outpatient (CLI) | payer MEDICARE, MEDICAID | LOC: M ONCR 16:08 | PROVIDERS: ATTEND General Practice | DX: C50.312 Malignant neoplasm of lower-inner quadrant of left female breast (principal); N64.89 Other specified disorders of breast; Z71.2 Person consulting for explanation of examination or test findings; Z79.899 Other long term (current) drug therapy; Z88.5 Allergy status to narcotic agent; Z88.8 Allergy status to other drugs, medicaments and biological substances; Z92.3 Personal history of irradiation; Z91.018 Allergy to other foods; Z91.02 Food additives allergy status; Z91.040 Latex allergy status; Z98.890 Other specified postprocedural states ==

== ENCOUNTER → 2023-07-13 | Outpatient (CLI) | payer MEDICARE, MEDICAID ==
[2023-07-13 17:27] LABS: BASO % 0.8 % (0.0-1.0); EOS # 0.1 10^3/uL (0.0-0.5); EOS % 1.8 % (0.0-3.0); HEMATOCRIT 40.1 % (36.0-47.0); HEMOGLOBIN 13.7 g/dl (12.0-15.5); LYMPH # 1.7 10^3/uL (1.5-5.0); LYMPH % 33.2 % (24.0-44.0); MEAN CORPUSCULAR HEMOGLOBIN 33.3 pg (27.0-33.0); MEAN CORPUSCULAR HGB CONC 34.2 g/dl (32.0-36.5); MEAN CORPUSCULAR VOLUME 97.6 fl (80.0-96.0); MONO # 0.4 10^3/uL (0.0-0.8); MONO % 8.5 % (2.0-8.0); NEUTROPHILS # 2.8 10^3/uL (1.5-8.5); NEUTROPHILS % 55.3 % (36.0-66.0); PLATELET COUNT, AUTOMATED 311 10^3/uL (150-450); RED BLOOD COUNT 4.11 10^6/uL (4.00-5.40); WHITE BLOOD COUNT 5.1 10^3/uL (4.0-10.0)
[2023-07-13 17:47] LABS: INR 1.06; PARTIAL THROMBOPLASTIN TIME 29.2 SECONDS (24.8-34.2); PROTHROMBIN TIME 13.5 SECONDS (12.5-14.5)
[2023-07-13 18:00] LABS: ALBUMIN 3.7 G/DL (3.2-5.2); ALKALINE PHOSPHATASE 74 U/L (46-116); ALT/SGPT 21 U/L (7.0-40); AST/SGOT 19 U/L (<34); BILIRUBIN,TOTAL 0.3 MG/DL (0.3-1.2); BLOOD UREA NITROGEN 10 MG/DL (9-23); CALCIUM LEVEL 9.3 MG/DL (8.5-10.1); CARBON DIOXIDE LEVEL 28 MMOL/L (20-31); CHLORIDE LEVEL 108 MMOL/L (98-107); GLOMERULAR FILTRATION RATE > 60.0 (>51); GLUCOSE, FASTING 75 MG/DL (60-100); POTASSIUM SERUM 4.3 MMOL/L (3.5-5.1); SODIUM LEVEL 144 MMOL/L (136-145)
[2023-07-13 18:01] LABS: PTH INTACT 92.3 PG/ML (18.5-88.0)
[2023-07-13 18:02] LABS: FERRITIN 50.6 NG/ML (7.3-270.7)
[2023-07-13 18:03] LABS: TOTAL 25(OH) VITAMIN D 24.6 NG/ML (20.0-100.0)
== END ==
LOC: M PLALAB 15:08
PROVIDERS: ATTEND Family Medicine
DX: Z01.818 Encounter for other preprocedural examination (principal); E55.9 Vitamin D deficiency, unspecified; Z79.899 Other long term (current) drug therapy; Z86.39 Personal history of other endocrine, nutritional and metabolic disease

== ENCOUNTER → 2023-07-13 | Outpatient (REF) | payer MEDICARE, MEDICAID | LOC: M SFHCPLAZ 14:48 | PROVIDERS: ATTEND Family Medicine | DX: Z01.818 Encounter for other preprocedural examination (principal); M81.0 Age-related osteoporosis without current pathological fracture ==

== ENCOUNTER → 2023-09-03 | Outpatient (CLI) | payer MEDICARE, MEDICAID ==
[2023-09-03 17:28] LABS: BASO # 0.1 10^3/uL (0.0-0.2); BASO % 1.4 % (0.0-1.0); EOS # 0.2 10^3/uL (0.0-0.5); HEMATOCRIT 38.2 % (36.0-47.0); LYMPH # 1.3 10^3/uL (1.5-5.0); LYMPH % 27.5 % (24.0-44.0); MEAN CORPUSCULAR HEMOGLOBIN 31.4 pg (27.0-33.0); MEAN CORPUSCULAR HGB CONC 31.4 g/dl (32.0-36.5); MONO # 0.5 10^3/uL (0.0-0.8); MONO % 9.9 % (2.0-8.0); NEUTROPHILS # 2.7 10^3/uL (1.5-8.5); PLATELET COUNT, AUTOMATED 437 10^3/uL (150-450); RED BLOOD COUNT 3.82 10^6/uL (4.00-5.40); WHITE BLOOD COUNT 4.8 10^3/uL (4.0-10.0)
[2023-09-03 17:51] LABS: ALBUMIN 3.6 G/DL (3.2-5.2); ALKALINE PHOSPHATASE 111 U/L (46-116); ALT/SGPT 64 U/L (7.0-40); AST/SGOT 41 U/L (<34); BILIRUBIN,TOTAL 0.2 MG/DL (0.3-1.2); BLOOD UREA NITROGEN 12 MG/DL (9-23); CALCIUM LEVEL 9.2 MG/DL (8.5-10.1); CARBON DIOXIDE LEVEL 30 MMOL/L (20-31); CHLORIDE LEVEL 108 MMOL/L (98-107); CREATININE FOR GFR 0.49 MG/DL (0.55-1.30); GLOMERULAR FILTRATION RATE > 60.0 (>51); GLUCOSE, FASTING 84 MG/DL (60-100); IRON (FE) 47 UG/DL (50-170); POTASSIUM SERUM 4.2 MMOL/L (3.5-5.1); SODIUM LEVEL 141 MMOL/L (136-145); TOTAL IRON BINDING CAPACITY 335 UG/DL (250-425); TOTAL PROTEIN 6.8 G/DL (5.7-8.2)
[2023-09-03 17:54] LABS: FERRITIN 64.7 NG/ML (7.3-270.7)
== END ==
LOC: M PLALAB 15:32
PROVIDERS: ATTEND Physician Assistant
DX: E61.1 Iron deficiency (principal); R60.0 Localized edema; Z98.890 Other specified postprocedural states

== ENCOUNTER → 2023-09-03 | Outpatient (CLI) | payer MEDICARE, MEDICAID | LOC: M WHC 15:27 | PROVIDERS: ATTEND Physician Assistant | DX: R60.0 Localized edema (principal); Z98.890 Other specified postprocedural states ==

== ENCOUNTER → 2023-09-08 | Outpatient (CLI) | payer MEDICARE, MEDICAID | LOC: M WHC 11:18 | PROVIDERS: ATTEND Nurse Practitioner Women's Health | DX: Z85.3 Personal history of malignant neoplasm of breast (principal); R92.333 Mammographic heterogeneous density, bilateral breasts; Z92.3 Personal history of irradiation; N60.02 Solitary cyst of left breast; N60.11 Diffuse cystic mastopathy of right breast | CPT/HCPCS: 76641; 77066; G0279 ==

== ENCOUNTER → 2023-10-23 | Outpatient (CLI) | payer MEDICARE, MEDICAID ==
[2023-10-23 17:16] LABS: BASO # 0.1 10^3/uL (0.0-0.2); BASO % 1.2 % (0.0-1.0); EOS # 0.2 10^3/uL (0.0-0.5); EOS % 2.9 % (0.0-3.0); HEMATOCRIT 43.4 % (36.0-47.0); HEMOGLOBIN 14.1 g/dl (12.0-15.5); LYMPH # 1.8 10^3/uL (1.5-5.0); LYMPH % 30.9 % (24.0-44.0); MEAN CORPUSCULAR HEMOGLOBIN 30.3 pg (27.0-33.0); MEAN CORPUSCULAR HGB CONC 32.5 g/dl (32.0-36.5); MEAN CORPUSCULAR VOLUME 93.3 fl (80.0-96.0); MONO # 0.6 10^3/uL (0.0-0.8); MONO % 10.1 % (2.0-8.0); NEUTROPHILS # 3.2 10^3/uL (1.5-8.5); NEUTROPHILS % 54.7 % (36.0-66.0); PLATELET COUNT, AUTOMATED 364 10^3/uL (150-450); RED BLOOD COUNT 4.65 10^6/uL (4.00-5.40); WHITE BLOOD COUNT 5.8 10^3/uL (4.0-10.0)
[2023-10-23 17:23] LABS: ERYTHROCYTE SEDIMENTATION RATE 37 mm/hr (0-30)
[2023-10-23 17:38] LABS: ALBUMIN 3.8 G/DL (3.2-5.2); ALKALINE PHOSPHATASE 108 U/L (46-116); ALT/SGPT 21 U/L (7.0-40); AST/SGOT 19 U/L (<34); BILIRUBIN,TOTAL 0.2 MG/DL (0.3-1.2); BLOOD UREA NITROGEN 11 MG/DL (9-23); CALCIUM LEVEL 9.4 MG/DL (8.5-10.1); CARBON DIOXIDE LEVEL 30 MMOL/L (20-31); CHLORIDE LEVEL 107 MMOL/L (98-107); GLOMERULAR FILTRATION RATE > 60.0 (>51); GLUCOSE, FASTING 76 MG/DL (60-100); POTASSIUM SERUM 4.5 MMOL/L (3.5-5.1); SODIUM LEVEL 143 MMOL/L (136-145); TOTAL PROTEIN 7.1 G/DL (5.7-8.2)
== END ==
LOC: M PLALAB 14:58
PROVIDERS: ATTEND Nurse Practitioner Family
DX: R51.9 Headache, unspecified (principal); Z79.899 Other long term (current) drug therapy

== ENCOUNTER → 2023-11-19 | Outpatient (CLI) | payer MEDICARE, MEDICAID | LOC: M PLALAB 13:53 | PROVIDERS: ATTEND Physician Assistant | DX: H57.12 Ocular pain, left eye (principal) ==

== ENCOUNTER → 2024-03-17 | Outpatient (CLI) | payer MEDICAID, MEDICARE ==
[~2024-03-17] MED LIST changes: +THERTAB52 PO
== END ==
LOC: M ONCR 13:27
PROVIDERS: ATTEND General Practice
DX: Z08 Encounter for follow-up examination after completed treatment for malignant neoplasm (principal); Z85.3 Personal history of malignant neoplasm of breast; Z79.899 Other long term (current) drug therapy; Z92.3 Personal history of irradiation; Z88.5 Allergy status to narcotic agent; Z88.8 Allergy status to other drugs, medicaments and biological substances; Z91.018 Allergy to other foods; Z91.040 Latex allergy status; Z91.02 Food additives allergy status; Z96.641 Presence of right artificial hip joint

== ENCOUNTER → 2024-04-13 | Outpatient (CLI) | payer MEDICARE, MEDICAID | LOC: M WHC 08:54 | PROVIDERS: ATTEND General Practice | DX: C50.312 Malignant neoplasm of lower-inner quadrant of left female breast (principal); M80.08XA Age-related osteoporosis with current pathological fracture, vertebra(e), initial encounter for fracture; M85.851 Other specified disorders of bone density and structure, right thigh ==

== ENCOUNTER 2024-05-31 08:00 | Day surgery (SDC) | payer MEDICARE, MEDICAID ==
[~2024-05-31] VITALS: Ht 132.1 cm; Wt 65.1 kg
[~2024-05-31 08:00] MED LIST changes: +ACET-683 PO; +ALB2.5NEB INH; +BAYE81TA10 PO; +FAMO1TAB11 PO; +LIDO1ADH52 TOP; +MULT-90 PO; +SYST0.6S OU
[2024-05-31] MEDS ORDERED: MIDAZOLAM INJ 2MG/2ML VIAL As Ordered ONE (08:18)
[2024-05-31] MEDS ORDERED: propofoL 200 MG/20 ML VIAL As Ordered ONE (08:18)
[2024-05-31] MEDS ORDERED: LIDOCAINE 2% 100MG/5ML SDV (FOR ANES.) As Ordered ONE (08:18)
[2024-05-31] MEDS ORDERED: ONDANSETRON 4MG 2ML VIAL As Ordered ONE (08:18)
[2024-05-31] MEDS ORDERED: ACETAMINOPHEN 1000MG 100ML IV BAG As Ordered ONE (08:21)
[2024-05-31] MEDS ORDERED: KETOROLAC 60MG 2ML VIAL As Ordered ONE (08:22)
[2024-05-31 08:34] LABS: HEMATOCRIT 44.5 % (36.0-47.0); HEMOGLOBIN 15.2 g/dl (12.0-15.5); MEAN CORPUSCULAR HEMOGLOBIN 32.8 pg (27.0-33.0); MEAN CORPUSCULAR HGB CONC 34.2 g/dl (32.0-36.5); MEAN CORPUSCULAR VOLUME 96.1 fl (80.0-96.0); PLATELET COUNT, AUTOMATED 327 10^3/uL (150-450); RED BLOOD COUNT 4.63 10^6/uL (4.00-5.40); WHITE BLOOD COUNT 5.1 10^3/uL (4.0-10.0)
[2024-05-31] MEDS ORDERED: LR 1,000 ML IV SCH (08:35)
[2024-05-31] MEDS ORDERED: ALBUTEROL 6.7GM INHALER **FOR ANES. CART/OMNICELL ONLY As Ordered ONE (10:14)
[2024-05-31] MEDS: LIDOCAINE 1% SDV 30ML VIAL As Ordered ONE (10:18)
[2024-05-31 11:26] VITALS: BP 175/83; TEMP 96.8; O2SAT 95
== END 2024-05-31 11:28 | disposition home or self-care (01) ==
LOC: M SDC 08:00
PROVIDERS: ATTEND Specialist
DX: N95.0 Postmenopausal bleeding (principal); Z91.018 Allergy to other foods; Z88.8 Allergy status to other drugs, medicaments and biological substances; Z88.5 Allergy status to narcotic agent; Z79.899 Other long term (current) drug therapy
CPT/HCPCS: 36415; 58558; 85027; 88305; J0131; J1100; J1885; J2250; J2405

== ENCOUNTER → 2024-06-21 | Outpatient (CLI) | payer MEDICARE, MEDICAID ==
[~2024-06-21] MED LIST changes: +ISOVUE-370 76% 100ML VIAL ONE
== END ==
LOC: M PLAIMG 07:57
PROVIDERS: ATTEND Internal Medicine Medical Oncology
DX: C50.919 Malignant neoplasm of unspecified site of unspecified female breast (principal)
CPT/HCPCS: 70470; Q9967

== ENCOUNTER → 2024-09-13 | Outpatient (CLI) | payer MEDICARE, MEDICAID ==
[~2024-09-13] MED LIST changes: -ISOVUE-370 76% 100ML VIAL ONE
== END ==
LOC: M WHC 14:07
PROVIDERS: ATTEND General Practice
DX: D05.02 Lobular carcinoma in situ of left breast (principal); Z91.89 Other specified personal risk factors, not elsewhere classified; Z85.3 Personal history of malignant neoplasm of breast
CPT/HCPCS: 77066; G0279

== ENCOUNTER → 2024-12-20 | Outpatient (CLI) | payer MEDICARE, MEDICAID ==
[~2024-12-20] MED LIST changes: +VITA500045 PO
== END ==
LOC: M ONCM 11:11
PROVIDERS: ATTEND Dietitian, Registered
DX: Z71.3 Dietary counseling and surveillance (principal); C50.919 Malignant neoplasm of unspecified site of unspecified female breast; Z68.41 Body mass index [BMI] 40.0-44.9, adult

== ENCOUNTER → 2025-01-03 | Outpatient (CLI) | payer MEDICARE, MEDICAID | LOC: M ONCM 10:57 | PROVIDERS: ATTEND Dietitian, Registered | DX: C50.912 Malignant neoplasm of unspecified site of left female breast (principal); Z71.3 Dietary counseling and surveillance; Z68.41 Body mass index [BMI] 40.0-44.9, adult ==

== ENCOUNTER → 2025-01-06 | Outpatient (CLI) | payer MEDICARE, MEDICAID | LOC: M RAD 09:54 | PROVIDERS: ATTEND Internal Medicine Medical Oncology | DX: M54.50 Low back pain, unspecified (principal); M47.816 Spondylosis without myelopathy or radiculopathy, lumbar region; Z96.641 Presence of right artificial hip joint; Z85.3 Personal history of malignant neoplasm of breast ==

== ENCOUNTER → 2025-03-14 | Outpatient (CLI) | payer MEDICARE, MEDICAID | LOC: M ONCM 07:06 | PROVIDERS: ATTEND Dietitian, Registered | DX: C50.912 Malignant neoplasm of unspecified site of left female breast (principal); Z71.3 Dietary counseling and surveillance ==

== ENCOUNTER 2025-03-17 13:23 | Outpatient (RCR) | payer MEDICARE, MEDICAID | END 2025-03-30 | LOC: M PT 13:23 | PROVIDERS: ATTEND Nurse Practitioner Family | DX: Z96.641 Presence of right artificial hip joint (principal) ==

== ENCOUNTER → 2025-03-17 | Outpatient (CLI) | payer MEDICARE, MEDICAID ==
[2025-03-17 13:49] LABS: PLATELET COUNT, AUTOMATED 344 10^3/uL (150-450)
[2025-03-17 13:55] LABS: ESTIMATED AVERAGE GLUCOSE 97.0 MG/DL (60-110)
[2025-03-17 14:08] LABS: ALT/SGPT 17 U/L (7.0-40); AST/SGOT 18 U/L (<34); CALCIUM LEVEL 9.2 MG/DL (8.3-10.6); CARBON DIOXIDE LEVEL 27 MMOL/L (20-31); CHLORIDE LEVEL 105 MMOL/L (98-107); CHOLESTEROL LEVEL 250 MG/DL (<200); CHOLESTEROL RISK RATIO 3.55 (<5); CREATININE FOR GFR 0.58 MG/DL (0.55-1.30); GLOMERULAR FILTRATION RATE > 90.0 (>45); IRON (FE) 90 UG/DL (50-170); LDL CHOLESTEROL 165.2 MG/DL (<100); NON-HDL-C 179.6 MG/DL; PERCENT SATURATION 27.6 % (13.2-45.0); POTASSIUM SERUM 4.2 MMOL/L (3.5-5.1); SODIUM LEVEL 143 MMOL/L (136-145); TRIGLYCERIDES LEVEL 72 MG/DL (<150)
[2025-03-17 14:09] LABS: TOTAL 25(OH) VITAMIN D 59.1 NG/ML (20.0-100.0)
[2025-03-17 14:10] LABS: FREE T4 1.17 NG/DL (0.89-1.76)
== END ==
LOC: M LAB 13:06
PROVIDERS: ATTEND Nurse Practitioner Family
DX: E55.9 Vitamin D deficiency, unspecified (principal); M81.0 Age-related osteoporosis without current pathological fracture; Z13.220 Encounter for screening for lipoid disorders; Z13.1 Encounter for screening for diabetes mellitus; Z13.29 Encounter for screening for other suspected endocrine disorder; Z87.19 Personal history of other diseases of the digestive system

== ENCOUNTER → 2025-03-29 | Outpatient (CLI) | payer MEDICARE, MEDICAID ==
[2025-03-29 17:40] LABS: BASO # 0.1 10^3/uL (0.0-0.2); BASO % 1.1 % (0.0-1.0); EOS # 0.2 10^3/uL (0.0-0.5); EOS % 3.0 % (0.0-3.0); LYMPH # 1.6 10^3/uL (1.5-5.0); LYMPH % 24.6 % (24.0-44.0); MONO # 0.5 10^3/uL (0.0-0.8); MONO % 7.9 % (2.0-8.0); NEUTROPHILS # 4.0 10^3/uL (1.5-8.5); NEUTROPHILS % 63.2 % (36.0-66.0); PLATELET COUNT, AUTOMATED 331 10^3/uL (150-450)
[2025-03-29 18:03] LABS: ALT/SGPT 18 U/L (7.0-40); AST/SGOT 18 U/L (<34); CALCIUM LEVEL 9.6 MG/DL (8.3-10.6); CARBON DIOXIDE LEVEL 28 MMOL/L (20-31); CHLORIDE LEVEL 104 MMOL/L (98-107); CREATININE FOR GFR 0.60 MG/DL (0.55-1.30); GLOMERULAR FILTRATION RATE > 90.0 (>45); POTASSIUM SERUM 4.3 MMOL/L (3.5-5.1); SODIUM LEVEL 143 MMOL/L (136-145)
[2025-03-29 18:06] LABS: TOTAL 25(OH) VITAMIN D 60.0 NG/ML (20.0-100.0)
[2025-03-29 18:24] LABS: CA15-3 ANTIGEN 10.5 U/ML (<32.4)
== END ==
LOC: M PLALAB 16:08
PROVIDERS: ATTEND Internal Medicine Medical Oncology
DX: C50.912 Malignant neoplasm of unspecified site of left female breast (principal); Z79.899 Other long term (current) drug therapy

== ENCOUNTER → 2025-04-05 | Outpatient (CLI) | payer MEDICARE, MEDICAID | LOC: M ONCR 08:25 | PROVIDERS: ATTEND General Practice | DX: Z08 Encounter for follow-up examination after completed treatment for malignant neoplasm (principal); Z85.3 Personal history of malignant neoplasm of breast; R63.5 Abnormal weight gain; Z98.890 Other specified postprocedural states; Z92.3 Personal history of irradiation; Z91.018 Allergy to other foods; Z88.5 Allergy status to narcotic agent; Z88.8 Allergy status to other drugs, medicaments and biological substances; Z91.02 Food additives allergy status; Z79.82 Long term (current) use of aspirin; Z79.899 Other long term (current) drug therapy ==

== ENCOUNTER → 2025-04-25 | Outpatient (CLI) | payer MEDICARE, MEDICAID ==
[~2025-04-25] MED LIST changes: +ERGO125013 PO; -VITA500045 PO
== END ==
LOC: M ONCR 13:51
PROVIDERS: ATTEND General Practice
DX: R22.32 Localized swelling, mass and lump, left upper limb (principal)
CPT/HCPCS: G0463 ×2

== ENCOUNTER → 2025-05-02 | Outpatient (CLI) | payer MEDICARE, MEDICAID | LOC: M ONCM 13:03 | PROVIDERS: ATTEND Dietitian, Registered | DX: C50.919 Malignant neoplasm of unspecified site of unspecified female breast (principal); Z71.3 Dietary counseling and surveillance ==

== ENCOUNTER → 2025-05-03 | Outpatient (CLI) | payer MEDICARE, MEDICAID | LOC: M WHC 14:41 | PROVIDERS: ATTEND Nurse Practitioner Family | DX: N95.0 Postmenopausal bleeding (principal) ==

== ENCOUNTER → 2025-06-16 | Outpatient (CLI) | payer MEDICARE, MEDICAID | LOC: M RAD 10:42 | PROVIDERS: ATTEND Internal Medicine Medical Oncology | DX: C50.919 Malignant neoplasm of unspecified site of unspecified female breast (principal); M54.9 Dorsalgia, unspecified | CPT/HCPCS: 78306; A9503 ==

== ENCOUNTER → 2025-06-29 | Outpatient (CLI) | payer MEDICARE, MEDICAID ==
[2025-06-29 17:13] LABS: ALT/SGPT 16 U/L (7.0-40); AST/SGOT 19 U/L (<34); BASO # 0.0 10^3/uL (0.0-0.2); BASO % 0.7 % (0.0-1.0); CALCIUM LEVEL 9.8 MG/DL (8.3-10.6); CARBON DIOXIDE LEVEL 28 MMOL/L (20-31); CHLORIDE LEVEL 105 MMOL/L (98-107); CREATININE FOR GFR 0.56 MG/DL (0.55-1.30); EOS # 0.1 10^3/uL (0.0-0.5); EOS % 1.7 % (0.0-3.0); GLOMERULAR FILTRATION RATE > 90.0 (>45); LYMPH # 1.4 10^3/uL (1.5-5.0); LYMPH % 23.0 % (24.0-44.0); MONO # 0.4 10^3/uL (0.0-0.8); MONO % 7.0 % (2.0-8.0); NEUTROPHILS # 4.0 10^3/uL (1.5-8.5); NEUTROPHILS % 67.3 % (36.0-66.0); PLATELET COUNT, AUTOMATED 370 10^3/uL (150-450); POTASSIUM SERUM 4.3 MMOL/L (3.5-5.1); SODIUM LEVEL 142 MMOL/L (136-145)
== END ==
LOC: M PLALAB 15:03
PROVIDERS: ATTEND Nurse Practitioner Family
DX: R42 Dizziness and giddiness (principal); Z79.899 Other long term (current) drug therapy